=== PATIENT | female | born 1930 | race Caucasian/White ===

== ENCOUNTER 2019-06-12 15:48 | Inpatient (IN) ==
[2019-06-12 16:13] LABS: Basophils # 0.1 K/mcL (0.0-0.2); Eosinophils # 0.1 K/mcL (0.0-0.6); Eosinophils % 1.1 %; Hematocrit 45.4 % (35.3-44.9); Hemoglobin 15.1 g/dL (11.5-15.4); Immature Granulocytes % 0.3 % (0-4); Lymphocytes # 1.6 K/mcL (0.6-4.6); Lymphocytes % 17.2 %; Mean Corpuscular HGB Conc 33.3 g/dL (31.6-35.5); Mean Corpuscular Hemoglobin 32.8 pg (28.0-33.3); Mean Corpuscular Volume 98.5 fL (83.0-100.0); Mean Platelet Volume 10.9 fL (9.4-12.4); Monocytes # 1.2 K/mcL (0.0-1.3); Monocytes % 12.7 %; Neutrophils # 6.3 K/mcL (1.6-8.9); Platelet Count 238 K/mcL (140-400); Red Blood Count 4.61 M/mcL (3.82-4.97); Red Cell Distribution Width 12.2 % (11.5-14.5); Segmented Neutrophils % 67.7 %; White Blood Count 9.3 K/mcL (4.3-11.1)
[2019-06-12 16:20] LABS: Prothrombin Time 11.6 Seconds (9.4-12.1)
[2019-06-12 16:22] LABS: Activated Partial Thrombo Time 27.4 Seconds (26.0-36.0)
[2019-06-12 16:47] LABS: Alanine Aminotransferase 18 Units/L (7-52); Albumin 4.3 g/dL (3.5-5.7); Albumin/Globulin Ratio 1.3 (1.1-2.2); Alkaline Phosphatase 59 Units/L (34-104); Aspartate Amino Transferase 26 Units/L (13-39); BUN/Creatinine Ratio 31 (6-26); Bilirubin,Total 0.5 mg/dL (0.3-1.0); Blood Urea Nitrogen 26 mg/dL (8-23); Calcium 9.1 mg/dL (8.6-10.3); Carbon Dioxide 25 mEq/L (23-29); Chloride 105 mEq/L (98-107); Globulin 3.3 g/dL (2.4-3.5); Glucose 126 mg/dL (70-105); Osmolality,Calculated 296 (280-300); Potassium 4.4 mEq/L (3.5-5.1); Sodium 140 mEq/L (136-145); Total Protein 7.6 g/dL (6.4-8.9); Troponin I < 0.03 ng/mL (< 0.04); eGFR For African Americans > 60 (> 60); eGFR For Non-African Americans > 60 (> 60)
[2019-06-12] MEDS ORDERED: Ondansetron 4 MG/2 ML VIAL IVP PRN (17:13)
[2019-06-12] MEDS ORDERED: Acetaminophen 325 MG TABLET PO PRN (17:13)
[2019-06-12] MEDS ORDERED: NON-FORMULARY MEDICATION 1 EACH EACH (Doxepin Hcl 10 MG) PO SCH (18:00)
[2019-06-12] MEDS: Budesonide/Formoterol 80/4.5 1 PUFF INH IH SCH (19:41)
[2019-06-12] MEDS ORDERED: LOVASTATIN 40 MG PO SCH (21:00)
[2019-06-13 02:15] LABS: Hematocrit 41.7 % (35.3-44.9); Hemoglobin 13.7 g/dL (11.5-15.4); Mean Corpuscular HGB Conc 32.9 g/dL (31.6-35.5); Mean Corpuscular Hemoglobin 32.9 pg (28.0-33.3); Platelet Count 223 K/mcL (140-400); Red Blood Count 4.17 M/mcL (3.82-4.97); White Blood Count 7.3 K/mcL (4.3-11.1)
[2019-06-13 02:26] LABS: BUN/Creatinine Ratio 34 (6-26); Blood Urea Nitrogen 24 mg/dL (8-23); Calcium 9.1 mg/dL (8.6-10.3); Carbon Dioxide 29 mEq/L (23-29); Chloride 103 mEq/L (98-107); Chol/HDL Ratio 2.2 (0-4.9); Cholesterol 155 mg/dL (< 200); Glucose 109 mg/dL (70-105); HDL Cholesterol 70 mg/dL (40-59); LDL Cholesterol,Calculated 68 mg/dL (0-99); Osmolality,Calculated 297 (280-300); Phosphorous 3.2 mg/dL (2.7-4.5); Potassium 3.5 mEq/L (3.5-5.1); Sodium 141 mEq/L (136-145); Triglycerides 87 mg/dL (< 150); eGFR For African Americans > 60 (> 60); eGFR For Non-African Americans > 60 (> 60)
[2019-06-13 03:41] LABS: Estimated Average Glucose 134 mg/dl
[2019-06-13] MEDS: *HR* Enoxaparin 40 MG/0.4 ML SYRINGE SQ SCH (05:26)
[2019-06-13] MEDS: Budesonide/Formoterol 80/4.5 1 PUFF INH IH SCH ×2 (07:19→19:53)
[2019-06-13] MEDS: Aspirin 81 MG TAB.CHEW PO SCH (08:43)
[2019-06-13] MEDS: atenoloL 25 MG TABLET PO SCH (08:43)
[2019-06-13] MEDS ORDERED: GALANTAMINE HBR 24 MG PO SCH (09:00)
[2019-06-13] MEDS ORDERED: NON-FORMULARY MEDICATION 1 EACH EACH (Ezetimibe [Zetia] 10 MG) PO SCH (09:00)
[2019-06-13] MEDS: Furosemide 20 MG TABLET PO SCH (12:49)
[2019-06-14] MEDS: *HR* Enoxaparin 40 MG/0.4 ML SYRINGE SQ SCH (05:34)
[2019-06-14] MEDS: Budesonide/Formoterol 80/4.5 1 PUFF INH IH SCH ×2 (07:33→21:44)
[2019-06-14] MEDS: atenoloL 25 MG TABLET PO SCH (08:06)
[2019-06-14] MEDS: Aspirin 81 MG TAB.CHEW PO SCH (08:06)
[2019-06-14] MEDS ORDERED: Isovue-370 500 ML BOTTLE IVP ONE ×2 (09:09→09:11)
[2019-06-14] MEDS: Furosemide 20 MG TABLET PO SCH (13:17)
[2019-06-14] MEDS: Apixaban 5 MG TABLET PO SCH (21:06)
[2019-06-15 07:32] VITALS: BP 122/63
[2019-06-15] MEDS: Budesonide/Formoterol 80/4.5 1 PUFF INH IH SCH (07:44)
[2019-06-15] MEDS: Aspirin 81 MG TAB.CHEW PO SCH (08:16)
[2019-06-15] MEDS: Apixaban 5 MG TABLET PO SCH (08:16)
[2019-06-15] MEDS: atenoloL 25 MG TABLET PO SCH (08:16)
== END 2019-06-15 11:47 | disposition home health service (06) | DRG 65 ==
LOC: EMEROOARM 15:48 → 3BNU 15:48
PROVIDERS: ADMIT Internal Medicine; ATTEND Internal Medicine